=== PATIENT | female | born 1975 | race Hispanic/Latino ===

== ENCOUNTER 2019-07-22 10:12 | Outpatient (CLI) | payer OTHER ==
--- NOTE | 2019-07-22 10:33 | ULT ---
US Gallbladder RUQ HISTORY: Elevated liver function tests. COMPARISON: None. FINDINGS: Real-time imaging of the right upper quadrant shows a normal-appearing gallbladder. The com mon duct is 4 mm. Visualized liver parenchyma is of mild increased echogenicity. It measures 14 cm in length. Right kidney is normal in size and not obstructed. Pancreas is partially obscured. IMPRESSION: Fatty changes of the liver.
== END 2019-07-22 10:13 | disposition home or self-care (01) ==
LOC: BICULT 10:12
PROVIDERS: ATTEND Family Medicine
DX: R74.8 Abnormal levels of other serum enzymes (principal); K76.0 Fatty (change of) liver, not elsewhere classified
CPT/HCPCS: 76705